=== PATIENT | male | born 1975 | race Caucasian/White ===

== ENCOUNTER 2016-11-21 13:55 | Emergency (ER) | payer BC | END 2016-11-21 16:05 | disposition left against medical advice (07) | LOC: UCEAST 13:55 | DX: Z11.3 Encounter for screening for infections with a predominantly sexual mode of transmission (principal); Z53.21 Procedure and treatment not carried out due to patient leaving prior to being seen by health care provider ==

== ENCOUNTER 2018-07-02 07:53 | Emergency (ER) | payer BC ==
[2018-07-02] MEDS ORDERED: NS 0.9% 1000 ML* 1,000 ML IV ONE (08:13)
[2018-07-02] MEDS ORDERED: Ondansetron INJ* 2 MG/ML VIAL IV ONE (08:13)
[2018-07-02] MEDS ORDERED: Ketorolac INJ* 30 MG/ML 1 ML VIAL IV ONE (08:13)
--- NOTE | 2018-07-02 08:17 | ED ---
Abdominal Pain/Male - HPI Summary HPI Summary: Pt is a 42 y/o male who presents to the ED c/o abdominal pain. He states hes had the pain for several weeks, and the pain begins every morning. The pain is located in his RLQ, is 8/10 in severity, and has had N/V from the pain. Pt denies any fever or chills. He was at [place] earlier this week for his AFib, and denies getting any imaging studies done for his abdominal pain. Pt also denies going to a unleavened dough mixer for his AFib. He denies any PSHx of abdominal surgery. He denies eating food today, or taking any medications for his pain. Pt smokes 2-3 cigarettes per day, uses marijuana occasionally, and drinks alcohol. Past hx of alcohol abuse. - History of Current Complaint Chief Complaint: EDAbdPain Stated Complaint: VOMITING/ABD PAIN Time Seen by Provider: 07/02/18 08:05 Hx Obtained From: Patient Onset/Duration: Gradual Onset, Lasting Weeks - 2-3, Worse Since Timing: Constant Severity Currently: Severe Pain Intensity: 8 Pain Scale Used: 0-10 Numeric Location: Diffuse, Discrete At: RLQ - Worst Radiates: No Aggravating Factor(s): Nothing Alleviating Factor(s): Nothing Associated Signs And Symptoms: Positive: Nausea, Vomiting. Negative: Fever - Allergies/Home Medications Allergies/Adverse Reactions: Allergies Allergy/AdvReac Type Severity Reaction Status Date / Time MS Iodine [Iodine] Allergy Rash Verified 11/13/15 20:16 PMH/Surg Hx/FS Hx/Imm Hx Endocrine/Hematology History: Denies: Hx Diabetes, Hx Anemia Cardiovascular History: Reports: Hx Angina - VTACH episode 2011, Hx Atrial Fibrillation, Hx Hypercholesterolemia - HLD, Hx Hypertension, Other Cardiovascular Problems/Disorders - pt has a loop recorder for vtach placed in 5 years ago Denies: Hx Congestive Heart Failure, Hx Coronary Artery Disease, Hx Myocardial Infarction, Hx Valvular Heart Disease Respiratory History: Reports: Hx Asthma, Hx Pneumonia, Hx Sleep Apnea Denies: Hx Chronic Obstructive Pulmonary Disease (COPD) GI History: Reports: Hx Gastroesophageal Reflux Disease Denies: Hx Jaundice Neurological History: Reports: Hx Headaches Psychiatric History: Reports: Hx Anxiety, Hx Depression, Hx Panic Disorder, Hx of Violent Episodes Against Others, Hx Substance Abuse - EtOH - Surgical History Surgery Procedure, Year, and Place: INTERNAL EVENT LOOP RECORDED [facility] 07/2012 Hx Anesthesia Reactions: No Infectious Disease History: No Infectious Disease History: Denies: Traveled Outside the [place] in Last 30 Days - Family History Known Family History: Positive: Cardiac Disease - [place] - sister - Social History Alcohol Use: Weekly Alcohol Amount: 2-4 BEERS/DAY Hx Substance Use: Yes Substance Use Type: Reports: Marijuana - Occasional Hx Tobacco Use: Yes Smoking Status (MU): Light Every Day Tobacco Smoker Amount Used/How Often: 2-3 cig/day Have You Smoked in the Last Year: Yes Review of Systems Negative: Fever, Chills Positive: Abdominal Pain, Vomiting, Nausea All Other Systems Reviewed And Are Negative: Yes Physical Exam - Summary Physical Exam Summary: GENERAL: Patient is a well-developed and nourished M who is lying uncomfortable in the stretcher. Patient is not in any acute respiratory distress. HEAD AND FACE: Normocephalic EYES: PERRLA, EOMI x 2. EARS: Hearing grossly intact. MOUTH: Oropharynx within normal limits. NECK: Supple, trachea is midline, no adenopathy, no JVD, no carotid bruit. CHEST: Symmetric, no tenderness at palpation LUNGS: Clear to auscultation bilaterally. No wheezing or crackles. CVS: Regular rate and rhythm, S1 and S2 present, no murmurs or gallops appreciated. ABDOMEN: Soft. Bowel sounds are normal. No abdominal abnormal pulsations. Diffuse tenderness. EXTREMITIES: Full ROM in all major joints, no edema, no cyanosis or clubbing. NEURO: Alert and oriented x 3. No acute neurological deficits. Speech is normal and follows commands. SKIN: Dry and warm Triage Information Reviewed: Yes Vital Signs On Initial Exam: Initial Vitals Temp Pulse Resp BP Pulse Ox 98.4 F 72 24 110/89 99 07/02/18 07:57 07/02/18 07:57 07/02/18 07:57 07/02/18 07:57 07/02/18 07:57 Vital Signs Reviewed: Yes Diagnostics - Vital Signs Vital Signs Temp Pulse Resp BP Pulse Ox 07/02/18 07:57 98.4 F 72 24 110/89 99 - Laboratory Result Diagrams: 07/02/18 08:37 07/02/18 08:37 Lab Statement: Any lab studies that have been ordered have been reviewed, and results considered in the medical decision making process. - CT CT A/P CT Interpretation: No Acute Changes - No bowel obstruction. No abnormal masses or fluid collections are noted. Normal appendix. ED physician reviewed radiology report. CT Interpretation Completed By: Radiologist Re-Evaluation - Re-Evaluation First Eval Re-Evaluation Time: 11:14 Change: Unchanged Comment: Informed pt of imaging results. Abdominal Pain Fem Course/Dx - Course Course Of Treatment: Pt is a 42 y/o male who presents to the ED c/o abdominal pain. He states hes had the pain for several weeks, and the pain begins every morning. The pain is located in his RLQ, is 8/10 in severity, and has had N/V from the pain. Pt denies any fever or chills. He was at [place] earlier this week for his AFib, and denies getting any imaging studies done for his abdominal pain. A physical exam revealed diffuse abdominal tenderness. A CT A/P revealed No bowel obstruction. No abnormal masses or fluid collections are noted. Normal appendix. Final dx is abdominal pain. Pt is discharged and is agreeable with this plan. - Diagnoses Provider Diagnoses: Abdominal pain Discharge - Sign-Out/Discharge Documenting (check all that apply): Patient Departure - Discharge - Discharge Plan Condition: Stable Disposition: HOME Prescriptions: Ondansetron [Zofran Odt] 4 mg PO TID #12 tab.rapdis traMADol TAB* [Ultram*] 50 mg PO Q8H PRN #12 tab MDD 3 PRN Reason: Pain Patient Education Materials: Abdominal Pain (ED) Forms: *Work Release Referrals: Bernabe Clarke MD [Medical Doctor] - (1-3 days) Additional Instructions: RETURN TO THE EMERGENCY DEPARTMENT FOR CHANGING OR WORSENING SYMPTOMS. - Billing Disposition and Condition Condition: STABLE Disposition: Home - Attestation Statements Document Initiated by Scribe: Yes Documenting Scribe: Odalys Wright Provider For Whom Wale is Documenting (Include Credential): Cheri Bermudez MD Scribe Attestation: Odalys Camp scribed for Cheri Bermudez MD on 07/03/18 at 0712. Scribe Documentation Reviewed: Yes Provider Attestation: The documentation as recorded by the Odalys ngo accurately reflects the service I personally performed and the decisions made by Cheri leyva MD
[2018-07-02 08:46] LABS: ABS Basophils 0.1 10^3/ul (0-0.2); ABS Eosinophils 0.1 10^3/ul (0-0.6); ABS Monocytes 0.5 10^3/ul (0-0.8); ABS Nucleated RBC 0 10^3/ul; Eosinophil % 1.2 % (0-6); Hematocrit 45 % (42-52); Hemoglobin 15.5 g/dl (14.0-18.0); Lymphocyte % 23.2 % (25-47); Mean Corpuscular HGB Conc 35 g/dl (31-36); Mean Corpuscular Hemoglobin 32 pg (27-31); Mean Corpuscular Volume 91 fL (80-94); Mean Platelet Volume 7.6 um3 (7.4-10.4); Nucleated Red Blood Cells % 0; Platelet Count 274 10^3/ul (150-450); Red Blood Count 4.91 10^6/ul (4.00-5.40); Red Cell Distribution Width 13 % (10.5-15); White Blood Count 8.7 10^3/ul (3.5-10.8)
[2018-07-02] MEDS ORDERED: Morphine VIAL* 10 MG/ML 1 ML VIAL IV ONE (09:08)
[2018-07-02 09:49] LABS: Urine Appearance Cloudy; Urine Blood 1+ (Negative); Urine Color Yellow; Urine Ketones Negative (Negative); Urine Protein Negative (Negative); Urine Red Blood Cell Trace(0-2/hpf) (Absent); Urine Specific Gravity 1.027 (1.010-1.030); Urine Urobilinogen Negative (Negative); Urine White Blood Cell Trace(0-5/hpf) (Absent)
--- NOTE | 2018-07-02 10:28 | RAD ---
Indication: Diffuse abdominal pain. CT of the abdomen and pelvis was performed without oral or IV contrast administration. No prior study is available for comparison. The lung bases demonstrate no pleural fluid, pneumonia or pneumothorax. Heart is of normal size without evidence of pericardial effusion. The liver is normal in size. No focal lesions or intrahepatic duct dilatation is noted. The gallbladder demonstrates no calcified gallstones. No pericholecystic fluid or wall thickening is noted. The spleen is normal in size. The pancreas demonstrates no mass or pancreatic duct dilatation. The common duct is not dilated. The gallbladder demonstrates no calcified gallstones, pericholecystic fluid or wall thickening. No adrenal masses are noted. The kidneys demonstrate no hydronephrosis. No retroperitoneal lymphadenopathy is noted. No dilated loops of bowel are noted. CT of the pelvis demonstrates no dilated loops of bowel. The appendix is visualized. It appears to be within normal limits. No evidence of bowel obstruction is noted. No hernias are noted. The urinary bladder is unremarkable. The visualized bony structures are grossly unremarkable. IMPRESSION: No bowel obstruction. No abnormal masses or fluid collections are noted. Normal appendix.
[2018-07-02 11:56] VITALS: BP 133/90
== END 2018-07-02 11:55 | disposition home or self-care (01) ==
LOC: ED 07:53
DX: R10.31 Right lower quadrant pain (principal); K21.9 Gastro-esophageal reflux disease without esophagitis; I48.91 Unspecified atrial fibrillation; E78.00 Pure hypercholesterolemia, unspecified; E78.5 Hyperlipidemia, unspecified; I10 Essential (primary) hypertension; F17.210 Nicotine dependence, cigarettes, uncomplicated
CPT/HCPCS: 36415; 74176; 80053; 81003; 81015; 83605; 83690; 83735; 85025; 85730; 86140; 87040; 87086; 96361; 96374; 96375; 99283; J1885; J2270; J2405

== ENCOUNTER 2018-07-06 11:27 | Emergency (ER) | payer BC ==
[2018-07-06] MEDS ORDERED: Pantoprazole IV* 40 MG IV ONE (11:41)
[2018-07-06] MEDS ORDERED: NS 0.9% 1000 ML* 2,000 ML IV ONE (11:41)
--- NOTE | 2018-07-06 11:48 | ED ---
Respiratory - HPI Summary HPI Summary: This patient is a 42 year old M presenting to [facility] with a chief complaint of coughing up bright red blood. Pt states he was at work walking with a coworker when he coughed up bright red blood. He has had a few occasions since this first episode, but he only coughs occasionally. The patient rates the pain 7/10 in severity. Patient reports epigastria pain and SOB. Patient denies coughing, blood in his stool, and vomiting. Pt took two ibuprofen for a MCKINLEY this am. 5 days ago the patient was seen in the ED for ABD pain, n/v, and dry heaving. Pt has recently been seen for and afib. He is not on blood thinners. Pt drinks daily and had two beers last night, he also smokes marijuana daily. - History of Current Complaint Chief Complaint: EDShortnessOfBreath Stated Complaint: COUGHING UP BLOOD Time Seen by Provider: 07/06/18 11:35 Hx Obtained From: Patient Onset/Duration: Lasting Hours, Still Present Timing: Constant Initial Severity: Moderate Current Severity: Moderate Pain Intensity: 7 Character: Cough (Productive) Sputum Amount: Small Sputum Color: Red (Blood) Associated Signs and Symptoms: Negative - fever - Allergy/Home Medications Allergies/Adverse Reactions: Allergies Allergy/AdvReac Type Severity Reaction Status Date / Time iodine Allergy Severe Rash Verified 07/06/18 12:56 Home Medications: Home Medications Ondansetron [Zofran Odt] 4 mg PO TID PRN 07/06/18 [History Confirmed 07/06/18] Sertraline* [Zoloft*] 50 mg PO DAILY 07/06/18 [History Confirmed 07/06/18] clonazePAM TAB(*) [Klonopin TAB(*)] 0.5 mg PO BID PRN 07/06/18 [History Confirmed 07/06/18] PMH/Surg Hx/FS Hx/Imm Hx Endocrine/Hematology History: Denies: Hx Diabetes, Hx Anemia Cardiovascular History: Reports: Hx Angina - VTACH episode 2011, Hx Atrial Fibrillation, Hx Hypercholesterolemia - HLD, Hx Hypertension, Other Cardiovascular Problems/Disorders - pt has a loop recorder for vtach placed in 5 years ago Denies: Hx Congestive Heart Failure, Hx Coronary Artery Disease, Hx Myocardial Infarction, Hx Valvular Heart Disease Respiratory History: Reports: Hx Asthma, Hx Pneumonia, Hx Sleep Apnea Denies: Hx Chronic Obstructive Pulmonary Disease (COPD) GI History: Reports: Hx Gastroesophageal Reflux Disease Denies: Hx Jaundice Neurological History: Reports: Hx Headaches Psychiatric History: Reports: Hx Anxiety, Hx Depression, Hx Panic Disorder, Hx of Violent Episodes Against Others, Hx Substance Abuse - EtOH - Surgical History Surgery Procedure, Year, and Place: INTERNAL EVENT LOOP RECORDED [facility] 07/2012 Hx Anesthesia Reactions: No Infectious Disease History: No Infectious Disease History: Denies: Traveled Outside the [place] in Last 30 Days - Family History Known Family History: Positive: Cardiac Disease - [place] - sister - Social History Alcohol Use: Weekly Alcohol Amount: 2-4 BEERS/DAY Hx Substance Use: Yes Substance Use Type: Reports: Marijuana - Occasional Hx Tobacco Use: Yes Smoking Status (MU): Light Every Day Tobacco Smoker Amount Used/How Often: 2-3 cig/day Have You Smoked in the Last Year: Yes Review of Systems Negative: Fever Positive: Shortness Of Breath, Cough Positive: Abdominal Pain. Negative: Vomiting All Other Systems Reviewed And Are Negative: Yes Physical Exam - Summary Physical Exam Summary: VITAL SIGNS: Reviewed. GENERAL: Patient is a well-developed and nourished male who is lying comfortable in the stretcher. Patient is not in any acute respiratory distress. HEAD AND FACE: No signs of trauma. No ecchymosis, hematomas or skull depressions. No sinus tenderness. EYES: PERRLA, EOMI x 2, No injected conjunctiva, no nystagmus. EARS: Hearing grossly intact. Ear canals and tympanic membranes are within normal limits. MOUTH: Oropharynx within normal limits. NECK: Supple, trachea is midline, no adenopathy, no JVD, no carotid bruit, no c- spine tenderness, neck with full ROM. CHEST: Symmetric, no tenderness at palpation LUNGS: Clear to auscultation bilaterally. No wheezing or crackles. CVS: Regular rate and rhythm, S1 and S2 present, no murmurs or gallops appreciated. ABDOMEN: Soft, TTP in epigastria. No signs of distention. No rebound no guarding , and no masses palpated. Bowel sounds are normal. EXTREMITIES: FROM in all major joints, no edema, no cyanosis or clubbing. NEURO: Alert and oriented x 3. No acute neurological deficits. Speech is normal and follows commands. SKIN: Dry and warm Triage Information Reviewed: Yes Vital Signs On Initial Exam: Initial Vitals Temp Pulse Resp BP Pulse Ox 97.5 F 89 16 151/104 99 07/06/18 11:32 07/06/18 11:32 07/06/18 11:32 07/06/18 11:32 07/06/18 11:32 Vital Signs Reviewed: Yes Diagnostics - Vital Signs Vital Signs Temp Pulse Resp BP Pulse Ox 07/06/18 11:32 97.5 F 89 16 151/104 99 - Laboratory Result Diagrams: 07/06/18 12:06 07/06/18 12:06 Lab Statement: Any lab studies that have been ordered have been reviewed, and results considered in the medical decision making process. - Radiology CXR Radiology Interpretation Completed By: Radiologist - No active cardiopulmonary disease is noted. ED physician has reviewed this radiology report. - EKG 1153 Cardiac Rate: NL EKG Rhythm: Sinus Rhythm - at 75 BPM EKG Interpretation: normal axis and no ST elevations Disposition - Course Assessment/Plan: This patient is a 42-year-old male who presents to the emergency department with the chief complaint of epigastric pain, shortness of breath and coughing up blood. He reports that he cough a couple times this morning and then he he noticed that he had blood every time he coughed. Patient reports that he is not taking any blood thinners, has not taken aspirin but he took an ibuprofen this morning for headache. He also reports that one month ago the patient had abdominal pain as well as epigastric pain associated with nausea and vomiting. Patient reports that he drinks about 3 times a week, he had 2 beers last night, he smokes and he uses marijuana. Blood test results without any significant abnormality except for an increased creatinine level of 1.31. Chest x-ray shows no acute pathology. In the ED course the patient was given IV fluids and he was given Protonix. Since that the patient has been stable. H&H is stable and he is hemodynamically stable. He has not had any other episodes of hematemesis. Therefore the patient will be discharged home with follow-up with primary care physician. The patient will be given a prescription for Zofran and omeprazole. I discussed all the findings and test results with the patient. Patient was instructed to return to the emergency room immediately if any of the symptoms return or worsens. Plan of care was discussed with the patient and understands and agrees. All questions were answered at patient satisfaction. There were no further complaints or concerns. Lung exam before discharge: CTA B/L. Good air exchange. No wheezing or crackles heard. CVS: S1 and S2 present. No murmurs appreciated. Patient is alert and oriented x 3. Patient is hemodynamically stable. Patient will be discharged home with follow up PCP in the next 2-3 days - Diagnoses Provider Diagnoses: Hemoptysis Discharge - Sign-Out/Discharge Documenting (check all that apply): Patient Departure - Discharge Plan Condition: Stable Disposition: HOME Prescriptions: Ondansetron ODT TAB* [Zofran 4 MG Odt TAB*] 4 mg PO Q6H PRN #10 tab.odt PRN Reason: Vomiting Patient Education Materials: Hemoptysis (ED) Referrals: Care [facility] [Outside] - 2 Days Additional Instructions: RETURN TO THE EMERGENCY DEPARTMENT FOR CHANGING OR WORSENING SYMPTOMS. FOLLOW UP WITH PCP IN 1-2 DAYS. - Billing Disposition and Condition Condition: STABLE Disposition: Home - Attestation Statements Document Initiated by Judyibe: Yes Documenting Scribe: Emeterio Monroy Provider For Whom Magaliee is Documenting (Include Credential): Sherman Delgado MD Scribe Attestation: Emeterio Camp , scribed for Sherman Delgado MD on 07/07/18 at 2059. Scribe Documentation Reviewed: Yes Provider Attestation: The documentation as recorded by the Emeterio ngo accurately reflects the service I personally performed and the decisions made by me, Sherman Delgado MD
[2018-07-06 12:42] LABS: INR 0.95 (0.77-1.02)
--- OUTSIDE RECORDS SUMMARY | 2018-07-06 12:52 | XMS REPORT ---
:1975 External Reference #:[id number] Author Organization [facility] Address [address] [place] [address] [place] [address] Phone [phone] Care Team Providers Name Role Phone Patrice Baca DO Care Team Information Window Tinter Unavailable Isael Munoz MD Primary Care Physician Unavailable Payers Type Date Identification Numbers Payment Provider Subscriber Commercial Expires: Policy Number: [id number] [email or web address] Odilon Ness 2018 Group Number: [id number] [address] PayID: [place] [address] [facility] Part [facility] Policy Number: [id number] [facility] Odilon Ness PayID: [id number] [address] [address] [place] [address] Problems Description No Information Family History Date Family Member(s) Problem(s) Comments Father Alive And Well Father uncles with NE's Mother due to Unknown () - history of Causes "Bipolar Schizophrenia". left family when patient was 4. Patient raised t he possibility that his mom did not take care of her health during her . 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 Allergies, Adverse Reactions, Alerts Date Description Reaction Status Severity Comments 07/02/2018 Iodine active 08/17/2012 NKDA inactive Medications Medication Date Status Form Strength Qnty SIG Indications Ordering Provider Sertraline HCL 07/03/ Active Tablets 50mg 30tabs 1 tab 2017 every day Kayla, (do not DO start this until after you finish the tramadol) Omeprazole / Active Capsules 20mg 90caps take one Doreen 0000 DR by mouth Jose Rner, daily DO Tramadol HCL / Active Tablets 50mg 1 tablets Unknown 0000 by mouth every 6 hours as needed pain Ondansetron / Active Tablets 4mg dissolve Unknown 0000 Dispers one tablet orally every 8 hours as needed for nausea. Potassium 08/17/ Hx Tablets ER 10Meq 180tab 2 po qd Shantanu Chloride ER 2011 Ana Cristina2017 MMane Lipitor / Hx Tablets 20mg 90tabs 1 po hs Shantanu 0000 - hold as of 08.17. Ana Cristina2017 Sharmila Librium / Hx Capsules as 10caps Unknown 0000 - Directed 2011 Thiamine HCL / Hx Tablets 100mg 15tabs take 1 Unknown 0000 - tablet 2017 Clonazepam Odt / Hx Tablets 0.5mg 30tabs qid prn Unknown 0000 - Dispers 2017 Aspir-81 / Hx Tablets DR 81mg 100tab 1 po qd Unknown 0000 - s 2017 Fish Oil / Hx Capsules 1000mg 60caps po bid Unknown Burp-Less 0000 - 2017 Multivitamins 00/ Hx Capsules 30caps 1 capsule Unknown 0000 - yoshi;y 2017 Vital Signs Date Vital Result Comment 07/04/2018 Weight 201.00 lb Heart Rate 74 /min BP Systolic 133 mmHg Lue average long BP Diastolic 93 mmHg Lue average long BP Systolic Sitting 135 mmHg Rue avarage long BP Diastolic Sitting 91 mmHg Rue avarage long Respiratory Rate 18 /min Body Temperature 96.5 F Pain Level 6 O2 % BldC Oximetry 100 % 07/02/2018 Height 73 inches 6'1" Weight 209.00 lb Heart Rate 50 /min BP Systolic 138 mmHg average long, Lue BP Diastolic 92 mmHg average long, Lue Respiratory Rate 18 /min Body Temperature 98.3 F Pain Level 8 RLQ O2 % BldC Oximetry 98 % BMI (Body Mass Index) 27.6 kg/m2 08/17/2012 Height 73 inches 6'1" Weight 205.00 lb Heart Rate 60 /min BP Systolic Sitting 116 mmHg BP Diastolic Sitting 82 mmHg Respiratory Rate 20 /min BMI (Body Mass Index) 27.0 kg/m2 Results Test Date Test Result H/L Range Note Basic Metabolic Panel 09/17/2012 Sodium 137 mmol/L 133-145 Potassium 4.1 mmol/L 3.5-5.0 Chloride 102 mmol/L 101-111 Co2 Carbon Dioxide 27.0 mmol/L 22-32 Anion Gap 8.0 mmol/L 2-11 Glucose 95 mg/dL 70-100 Blood Urea Nitrogen 16 mg/dL 6-24 Creatinine 1.10 mg/dL 0.50-1.40 BUN/Creatinine Ratio 14.5 8-20 Calcium 9.6 mg/dL 8.1-9.9 Egfr Non- 76.6 >60 Egfr 98.5 >60 1 Laboratory test finding 09/17/2012 Magnesium 2.2 mg/dL 1.7-2.6 CBC Auto Diff 09/17/2012 White Blood Count 6.3 10^3/uL 4.8-10.8 Red Blood Count 4.58 10^6/uL 4.0-5.4 Hemoglobin 14.4 g/dL 14.0-18.0 Hematocrit 43 % 42-52 Mean Corpuscular Volume 93 fL 80-94 Mean Corpuscular Hemoglobin 32 pg High 27-31 Mean Corpuscular HGB Conc 34 g/dL 31-36 Red Cell Distribution Width 12 % 10.5-15 Platelet Count 276 10^3/uL 150-450 Mean Platelet Volume 9 um3 7.4-10.4 Abs Neutrophils 3.1 10^3/uL 1.5-7.7 Abs Lymphocytes 2.5 10^3/uL 1.0-4.8 Abs Monocytes 0.4 10^3/uL 0-0.8 Abs Eosinophils 0.2 10^3/uL 0-0.6 Abs Basophils 0.1 10^3/uL 0-0.2 Abs Nucleated RBC 0.01 10^3/uL Granulocyte % 49.0 % 38-83 Lymphocyte % 39.4 % 25-47 Monocyte % 7.0 % 1-9 Eosinophil % 3.7 % 0-6 Basophil % 0.9 % 0-2 Nucleated Red Blood Cells % 0.1 Laboratory test finding 09/17/2012 Inr 0.81 Low 0.82-1.17 2 Catecholamine 24HR Urine 09/13/2012 Urine Collection 24 h Fract Duration Urine Total Volume 2000 mL Urine Norepinephrine 60 mcg/24h 15-80 Urine Epinephrine 5.6 mcg/24h 0.0-20.0 Urine Dopamine 216 mcg/24h 65-400 3 Basic Metabolic Panel 08/22/2012 Sodium 143 mmol/L 133-145 Potassium 4.3 mmol/L 3.5-5.0 Chloride 104 mmol/L 101-111 Co2 Carbon Dioxide 31.0 mmol/L 22-32 Anion Gap 8.0 mmol/L 2-11 Glucose 80 mg/dL 70-100 Blood Urea Nitrogen 17 mg/dL 6-24 Creatinine 1.10 mg/dL 0.50-1.40 BUN/Creatinine Ratio 15.5 8-20 Calcium 10.5 mg/dL High 8.1-9.9 Egfr Non- 76.6 >60 Egfr 98.5 >60 4 Laboratory test finding 08/22/2012 Magnesium 2.4 mg/dL 1.7-2.6 5 1 Because ethnic data is not always readily available, this report includes an eGFR for both -Americans and non- Americans. The National Kidney Disease Education Program (NKDEP) does not endorse the use of the MDRD equation for patients that are not between the ages of 18 and 70, are , have extremes of body size, muscle mass, or nutritional status, or are non- or non-. According to the National Kidney Foundation, irrespective of diagnosis, the stage of the disease is based on the level of kidney function: Stage Description GFR(mL/min/1.73 m(2)) 1 Kidney damage with normal or decreased GFR 90 2 Kidney damage with mild decrease in GFR 60-89 3 Moderate decrease in GFR 30-59 4 Severe decrease in GFR 15-29 5 Kidney failure <15 (or dialysis) 2 The INR(International Normalized Ratio) was adopted by the World Health Organization (WHO) in 1983 as a standardized system of reporting PT (Prothrombin Time). The Centers for Disease Control (CDC) states that reporting of PT results in INR only is the preferred method. Recommended INR for Patients on Oral Anticoagulants Prophylaxis 2.0 - 3.0 Treatment of thrombosis 2.0 - 3.0 Prevention of embolism 2.0 - 3.0 Prevention of embolism from prosthetic heart valves 2.5 - 3.5 3 Test Performed by: [address] [address] Ambulance Attendant: Calin Sr III, M.D. R 4 Because ethnic data is not always readily available, this report includes an eGFR for both -Americans and non- Americans. The National Kidney Disease Education Program (NKDEP) does not endorse the use of the MDRD equation for patients that are not between the ages of 18 and 70, are , have extremes of body size, muscle mass, or nutritional status, or are non- or non-. According to the National Kidney Foundation, irrespective of diagnosis, the stage of the disease is based on the level of kidney function: Stage Description GFR(mL/min/1.73 m(2)) 1 Kidney damage with normal or decreased GFR 90 2 Kidney damage with mild decrease in GFR 60-89 3 Moderate decrease in GFR 30-59 4 Severe decrease in GFR 15-29 5 Kidney failure <15 (or dialysis) 5 CC: LESLIE HUNTLEY AND DR.ETHAN BACA PER ROBY @ 'S OFFICE Procedures Date CPT Code Description Status 12/04/2013 88700 Treadmill Interp/Report Only Completed 12/04/2013 08939 Stress Test Supervsn W/Out I/R Completed 12/04/2013 41683 Myocardial Perfusion Imaging Tomographic (Spect) Completed Multiple Studies 12/03/2013 42986 EKG, Interpretation Only Completed 08/20/2013 89554 Polysomnography Sleep Staging 4+ Parameters W/Cpap Completed 08/06/2013 25810 Polysomnography Sleep Staging 4+ Parameters W/Cpap Completed 08/22/2012 44592 Mobile Cardiovascular Telemetry Over 24 HR Up To 30 Completed Days 08/17/2012 78711 EKG Tracing & Interpretation Completed Encounters Type Date Location Provider CPT E/M Dx Office Visit 08/01/2013 3:39p Sleep Disorder Cam Rowley M.D. 94739 786.[address] [place] [phone] Office Visit 08/17/2012 2:40p [facility] Shantanu De La Paz M.D. 52294 785.0 780.2 Plan of Care Future Appointment(s):07/20/2018 1:30 pm - Demetrius Aviles MD at [facility]08/06/2018 2:30 pm - Doreen Garza DO at [facility]11/22/2018 1:00 pm - Isael Munoz M.D.,FACP at [facility] Internal Medicine - [address]07/04/2018 - Doreen Garza, DOR00.2 PalpitationsNew Orders: EKGReferral:Brook Spivey MD, Cardiovsclr VcesltgH59.9 Major depressive disorder, single episode, lpoqgidyfydV97.31 Right lower quadrant painF41.0 Panic disorder [episodic paroxysmal anxiety]
--- OUTSIDE RECORDS SUMMARY | 2018-07-06 12:52 | XMS REPORT ---
:1975 External Reference #:[id number] Author Organization [facility] Address [address] [place] [address] [address] [place] [address] Phone [phone] Care Team Providers Name Role Phone Patrice Baca DO Care Team Information Counter Server Unavailable Bernabe Clarke MD Primary Care Physician Unavailable Payers Type Date Identification Numbers Payment Provider Subscriber Commercial Expires: Policy Number: [id number] [employer] Odilon Ness 2018 Group Number: [id number] 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 Allergies, Adverse Reactions, Alerts Date Description Reaction Status Severity Comments 07/02/2018 Iodine active 08/17/2012 NKDA inactive Medications Medication Date Status Form Strength Qnty SIG Indications Ordering Provider Omeprazole 00/ Active Capsules 20mg 90caps pt get Unknown 0000 DR OTC, 1 po qd Tramadol HCL / Active Tablets 50mg 1 tablets Unknown 0000 by mouth every 6 hours as needed pain Ondansetron / Active Tablets 4mg dissolve Unknown 0000 Dispers one tablet orally every 8 hours as needed for nausea. Potassium 08/17/ Hx Tablets ER 10Meq 180tab 2 po qd Shantanu Chloride ER 2011 - shaun2017 MMane Lipitor / Hx Tablets 20mg 90tabs 1 po hs Shantanu 0000 - hold as of 08.17. Mariela2017 Sharmila Librium / Hx Capsules as 10caps [...] bid Unknown Burp-Less 0000 - 2017 Multivitamins / Hx Capsules 30caps 1 capsule Unknown 0000 - yoshi;y 2017 Vital Signs Date Vital Result Comment 07/02/2018 Height 73 inches 6'1" Weight 209.00 [...] 2.5 - 3.5 3 Test Performed by: [address] [address] Cloth Beamer: Calin Sr III, M.D. R 4 Because [...] dialysis) 5 CC: LESLIE HUNTLEY AND DR.ETHAN HELLEN [place] @ 'S OFFICE Procedures Date CPT Code Description Status 12/04/2013 95406 Treadmill Interp/Report Only Completed 12/04/2013 77555 Stress Test Supervsn W/Out I/R Completed 12/04/2013 70518 Myocardial Perfusion Imaging Tomographic (Spect) Completed Multiple Studies 12/03/2013 88852 EKG, Interpretation Only Completed 08/20/2013 65486 Polysomnography Sleep Staging 4+ Parameters W/Cpap Completed 08/06/2013 67551 Polysomnography Sleep Staging 4+ Parameters W/Cpap Completed 08/22/2012 30375 Mobile Cardiovascular Telemetry Over 24 HR Up To 30 Completed Days 08/17/2012 19548 EKG Tracing & Interpretation Completed Encounters Type Date Location Provider CPT E/M Dx Office Visit 08/01/2013 3:39p Sleep Disorder Cam Rowley M.D. 44129 786.09 Center 780.79 780.59 Office Visit 08/17/2012 2:40p [facility] Shantanu De La Paz M.D. 35885 785.0 780.2 Plan of Care Future Appointment(s):08/02/2018 3:00 pm - Justus Lawrence NP at [facility] Internal Medicine - [address]24/10/2018 - LUCY Pagan10.31 Right lower quadrant painNew Xrays:US TesticularFollow up:stop marijuana
[2018-07-06 12:55] LABS: ABS Basophils 0.1 10^3/ul (0-0.2); ABS Eosinophils 0.1 10^3/ul (0-0.6); ABS Monocytes 0.5 10^3/ul (0-0.8); ABS Nucleated RBC 0 10^3/ul; Eosinophil % 0.8 % (0-6); Hematocrit 45 % (42-52); Hemoglobin 15.1 g/dl (14.0-18.0); Lymphocyte % 30.4 % (25-47); Mean Corpuscular HGB Conc 34 g/dl (31-36); Mean Corpuscular Hemoglobin 31 pg (27-31); Mean Corpuscular Volume 92 fL (80-94); Mean Platelet Volume 7.9 um3 (7.4-10.4); Nucleated Red Blood Cells % 0.1; Platelet Count 299 10^3/ul (150-450); Red Blood Count 4.85 10^6/ul (4.00-5.40); Red Cell Distribution Width 12 % (10.5-15); White Blood Count 6.7 10^3/ul (3.5-10.8)
--- NOTE | 2018-07-06 12:58 | RAD ---
Indication: Hematemesis. 2 views of the chest including dual energy PA views demonstrate no mediastinal shift. Heart is of normal size and configuration. Lung mcguire are clear. IMPRESSION: No active cardiopulmonary disease is noted.
[2018-07-06 13:01] LABS: EGFR Non-African American 60.6 (>60)
[2018-07-06 14:13] LABS: Urine Appearance Cloudy; Urine Blood Negative (Negative); Urine Color Yellow; Urine Ketones Trace (Negative); Urine Protein Negative (Negative); Urine Specific Gravity 1.029 (1.010-1.030); Urine Urobilinogen Negative (Negative)
[2018-07-06 14:18] VITALS: BP 130/88
== END 2018-07-06 14:17 | disposition home or self-care (01) ==
LOC: ED 11:27
DX: R04.2 Hemoptysis (principal); J45.909 Unspecified asthma, uncomplicated; K21.9 Gastro-esophageal reflux disease without esophagitis; I48.91 Unspecified atrial fibrillation; Z79.01 Long term (current) use of anticoagulants; E78.00 Pure hypercholesterolemia, unspecified; E78.5 Hyperlipidemia, unspecified; I10 Essential (primary) hypertension; F17.210 Nicotine dependence, cigarettes, uncomplicated
CPT/HCPCS: 36415; 71046; 80053; 81003; 83605; 83690; 83735; 83880; 84484; 85025; 85610; 85730; 86140; 86850; 86900; 86901; 93005; 96361; 96374; 99282

== ENCOUNTER 2018-10-01 09:48 | Emergency (ER) | payer BC ==
[2018-10-01] MEDS ORDERED: NS 0.9% 1000 ML* 1,000 ML IV ONE (10:04)
--- NOTE | 2018-10-01 10:12 | ED ---
Shortness of Breath - HPI Summary HPI Summary: This patient is a 42 year old M presenting to [facility] accompanied by a woman with a chief complaint of SOB since yesterday. The patient rates the pain 7/10 in severity. Symptoms aggravated by exercise or movement. Patient reports cough with black/brown phlegm, fever, chills, vomiting, CP, wheezing, and diaphoresis. The patient states that he cannot take deep breaths and cannot walk very far without needing to stop and breathe. He has not had this problem before. Pt states he has not had any recent long travel. He was at the [facility] earlier today, complicated heart and lung difficulties. PMHX Afib, SVT, asthma. No PMHx COPD. SHX tobacco use, light. - History of Current Complaint Chief Complaint: EDShortnessOfBreath Time Seen by Provider: 10/01/18 09:58 Hx Obtained From: Patient Onset/Duration: Sudden Onset, Lasting Days - 1 Timing: Constant Current Severity: Severe Dyspnea At: Rest Aggrevating Factors: Movement, Deep Breaths Associated Signs & Symptoms: Cough (Productive), Wheezing, Chest Pain w/Cough, Fever, Chills, Diaphoresis - Allergy/Home Medications Allergies/Adverse Reactions: Allergies Allergy/AdvReac Type Severity Reaction Status Date / Time iodine Allergy Severe Rash Verified 10/01/18 09:59 PMH/Surg Hx/FS Hx/Imm Hx Endocrine/Hematology History: Denies: Hx Diabetes, Hx Anemia Cardiovascular History: Reports: Hx Angina - VTACH episode 2011, Hx Atrial Fibrillation, Hx Hypercholesterolemia - HLD, Hx Hypertension, Other Cardiovascular Problems/Disorders - pt has a loop recorder for vtach placed in 5 years ago Denies: Hx Congestive Heart Failure, Hx Coronary Artery Disease, Hx Myocardial Infarction, Hx Valvular Heart Disease Respiratory History: Reports: Hx Asthma, Hx Pneumonia, Hx Sleep Apnea Denies: Hx Chronic Obstructive Pulmonary Disease (COPD) GI History: Reports: Hx Gastroesophageal Reflux Disease Denies: Hx Jaundice Neurological History: Reports: Hx Headaches Psychiatric History: Reports: Hx Anxiety, Hx Depression, Hx Panic Disorder, Hx of Violent Episodes Against Others, Hx Substance Abuse - EtOH - Surgical History Surgery Procedure, Year, and Place: INTERNAL EVENT LOOP RECORDED [facility] 07/2012 Hx Anesthesia Reactions: No Infectious Disease History: No Infectious Disease History: Denies: Traveled Outside the [place] in Last 30 Days - Family History Known Family History: Positive: Cardiac Disease - VT - sister - Social History Alcohol Use: Weekly Alcohol Amount: 2-4 BEERS/DAY Hx Substance Use: Yes Substance Use Type: Reports: Marijuana - Occasional Hx Tobacco Use: Yes Smoking Status (MU): Light Every Day Tobacco Smoker Amount Used/How Often: 2-3 cig/day Have You Smoked in the Last Year: Yes Review of Systems Positive: Fever, Chills, Skin Diaphoresis Positive: Chest Pain Positive: Shortness Of Breath, Cough Positive: Vomiting All Other Systems Reviewed And Are Negative: Yes Physical Exam - Summary Physical Exam Summary: VITAL SIGNS: Reviewed. GENERAL: Patient is a well-developed and nourished male who is lying comfortable in the stretcher. Patient is not in any acute respiratory distress. HEAD AND FACE: No signs of trauma. No ecchymosis, hematomas or skull depressions. No sinus tenderness. EYES: PERRLA, EOMI x 2, No injected conjunctiva, no nystagmus. EARS: Hearing grossly intact. Ear canals and tympanic membranes are within normal limits. MOUTH: Oropharynx within normal limits. NECK: Supple, trachea is midline, no adenopathy, no JVD, no carotid bruit, no c- spine tenderness, neck with full ROM. CHEST: Symmetric, no tenderness at palpation LUNGS: Clear to auscultation bilaterally. Decreased breath sounds in the lower lung. CVS: Regular rate and rhythm, S1 and S2 present, no murmurs or gallops appreciated. ABDOMEN: Soft, non-tender. No signs of distention. No rebound no guarding, and no masses palpated. Bowel sounds are normal. EXTREMITIES: FROM in all major joints, no edema, no cyanosis or clubbing. NEURO: Alert and oriented x 3. No acute neurological deficits. Speech is normal and follows commands. SKIN: Dry and warm Triage Information Reviewed: Yes Vital Signs On Initial Exam: Initial Vitals Temp Pulse Resp BP Pulse Ox 97.6 F 76 22 140/103 100 10/01/18 09:53 10/01/18 09:53 10/01/18 09:53 10/01/18 09:53 10/01/18 09:53 Vital Signs Reviewed: Yes Diagnostics - Vital Signs Vital Signs Temp Pulse Resp BP Pulse Ox 10/01/18 09:53 97.6 F 76 22 140/103 100 - Laboratory Result Diagrams: 10/01/18 10:23 10/01/18 10:23 Lab Statement: Any lab studies that have been ordered have been reviewed, and results considered in the medical decision making process. - Radiology CXR Radiology Interpretation Completed By: Radiologist Summary of Radiographic Findings: NO ACTIVE CARDIOPULMONARY DISEASE. ED physician has reviewed this report - EKG 10:10 Cardiac Rate: NL - 64 pm EKG Rhythm: Sinus Rhythm ST Segment: Normal EKG Comparison: No Significant Change - 07/06/18 Course/Dx - Course Assessment/Plan: This patient is a 42 year old M presenting to [facility] accompanied by a woman with a chief complaint of SOB since yesterday. The patient rates the pain 7/10 in severity. Symptoms aggravated by exercise or movement. Patient reports cough with black/brown phlegm, fever, chills, vomiting , CP, wheezing, and diaphoresis. The patient states that he cannot take deep breaths and cannot walk very far without needing to stop and breathe. He has not had this problem before. Pt states he has not had any recent long travel. He was at the [facility] clinic earlier today, complicated heart and lung difficulties. PMHX Afib, SVT, asthma. No PMHx COPD. SHX tobacco use, light. Blood work without any significant abnormality except for creatinine 1.29. Glucose is 105. D-dimer is less than 200. Therefore, hell no suspicion for pulmonary embolism. Troponin is 0.00. Chest x-ray impression: No active cardiopulmonary disease. EKG shows a normal sinus rhythm without any ST elevations. In the ED course the patient has remained stable. Head CT did give the patient Ativan since the patient seems to be very anxious. After these medications the symptoms had resolved. And since all his blood work is within normal limits and will be discharged the patient home with follow-up with primary care physician. I discussed all the findings and test results with the patient. Patient was instructed to return to the emergency room immediately if any of the symptoms return or worsens. Plan of care was discussed with the patient and understands and agrees. All questions were answered at patient satisfaction. There were no further complaints or concerns. Lung exam before discharge: CTA B/L. Good air exchange. No wheezing or crackles heard. CVS: S1 and S2 present. No murmurs appreciated. Patient is alert and oriented x 3. Patient is hemodynamically stable. Patient will be discharged home with follow up PCP in the next 2-3 days - Diagnoses Differential Diagnosis/HQI/PQRI: Positive: Asthma, Bronchitis, CHF, COPD Exacerbation, VT, Pneumonia Provider Diagnoses: Dyspnea, Anxiety Discharge - Sign-Out/Discharge Documenting (check all that apply): Patient Departure - discharge - Discharge Plan Condition: Stable Disposition: HOME Prescriptions: hydrOXYzine HCL TAB* [Atarax 25 MG TAB*] 25 mg PO TID PRN #20 tab PRN Reason: Anxiety Patient Education Materials: Dyspnea (ED), Anxiety (ED) Referrals: Isael Munoz MD [Primary Care Provider] - 2 Days Additional Instructions: RETURN TO THE EMERGENCY DEPARTMENT FOR NEW OR WORSENING SYMPTOMS - Billing Disposition and Condition Condition: STABLE Disposition: Home - Attestation Statements Document Initiated by Judyibmegan: Yes Documenting Scribe: Cayden Mccollum Provider For Whom Wale is Documenting (Include Credential): Sherman Delgado MD Scribe Attestation: Cayden Camp scribed for Sherman Delgado MD on 10/01/18 at 1816. Scribe Documentation Reviewed: Yes Provider Attestation: The documentation as recorded by the Cayden ngo accurately reflects the service I personally performed and the decisions made by , Sherman Delgado MD Status of Scribe Document: Viewed
--- OUTSIDE RECORDS SUMMARY | 2018-10-01 10:31 | XMS REPORT | Continuity of Care Document ---
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 krishna Odilon Ross [employer] Number: [id number] 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 Onset: 08/08/2018 Major depressive disorder, single episode, Demetrius Aviles MD Active unspecified Onset: 08/08/2018 Paroxysmal atrial fibrillation Demetrius Aviles MD Active Onset: 08/08/2018 Tobacco user Demetrius Aviles MD Active Onset: 08/08/2018 Panic disorder without agoraphobia Demetrius Aviles MD Active Family History Date Family Member(s) Problem(s) Comments Father Alive And Well Father uncles with CT's Mother due to Unknown () - history [...] Dependent Social History Type Date Description Comments Sex Unknown Marital Status 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 Allergies, Adverse Reactions, Alerts Date Description Reaction Status Severity Comments 07/02/2018 Iodine Active 08/17/2012 NKDA Inactive Medications Medication Date Status Form Strength Qnty SIG Indications Ordering Provider Sertraline HCL 08/08/ Active Tablets 100mg 45tabs take 1.5 F32.9 Demetrius 2018 tablet MD Stefan daily. Thiamine HCL 07/17/ Active Tablets 100mg 60tabs 1 by mouth Demetrius 2018 every day MD Stefan Folic Acid 07/17/ Active Tablets 1mg 90tabs 1 by mouth Demetrius 2018 every day MD Stefan Clonazepam 07/04/ Active Tablets 0.5mg 30tabs take one Doreen 2018 by mouth Senner, twice a DO day as needed for anxiety. do not take with alcohol. Omeprazole / Active Capsules 20mg 90caps take one Doreen 0000 DR by mouth Senner, daily DO Tramadol HCL / Active Tablets 50mg has not Unknown 0000 needed---1 tablets by mouth every 6 hours as needed pain Ondansetron / Active Tablets 4mg dissolve Unknown 0000 Dispers one tablet orally every 8 hours as needed for nausea. Ibuprofen / Active Tablets 200mg 1-2 tablet Unknown 0000 po as needed Sertraline HCL 07/17/ Hx Tablets 100mg 30tabs Take 1.5 F32.9 Demetrius 2017 - tablet MD Stefan 08/08/ daily. 2018 Sertraline HCL 07/03/ Hx Tablets 50mg 30tabs 1 tab Doreen 2018 - every day Senner, (do not DO 2018 start this until after you finish the tramadol) Potassium 08/17/ Hx Tablets ER 10Meq 180tab 2 po qd Shantanu Chloride ER 2011 - s . 07/01/ Ana Cristina, 2017 Sharmila Lipitor / Hx Tablets 20mg 90tabs 1 po hs Shantanu 0000 - hold as of . ..12 Boogie De La Paz M.D. Librium / Hx Capsules as 10caps Unknown [...] 1 capsule Unknown 0000 - yoshi;y 2017 Immunizations Description No Information Available Vital Signs Date Vital Result Comment 09/17/2018 12:31pm Height 73 inches 6'1" Weight 207.00 lb without shoes Heart Rate 84 /min BP Systolic 120 mmHg Rue reg cuff BP Diastolic 80 mmHg Rue reg cuff BP Systolic Sitting 122 mmHg Lue reg cuff BP Diastolic Sitting 84 mmHg Lue reg cuff BP Systolic Standing 120 mmHg Lue reg cuff BP Diastolic Standing 90 mmHg Lue reg cuff Respiratory Rate 16 /min BMI (Body Mass Index) 27.3 kg/m2 Ejection Fraction 55-60% date 08/13/2012 echo 08/08/2018 1:35pm Weight 200.00 lb Heart Rate 70 /min BP Systolic 130 mmHg Lue BP Diastolic 80 mmHg Lue BP Systolic Sitting 132 mmHg Rue BP Diastolic Sitting 80 mmHg Rue Respiratory Rate 16 /min Body Temperature 99.3 F Pain Level 0 O2 % BldC Oximetry 97 % 07/24/2018 1:48pm Weight 200.00 lb Heart Rate 62 /min BP Systolic 148 mmHg Lue BP Diastolic 98 mmHg Lue BP Systolic Sitting 152 mmHg Rue BP Diastolic Sitting 100 mmHg Rue Respiratory Rate 16 /min Body Temperature 99.5 F Pain Level 0 07/04/2018 1:12pm Weight 201.00 lb Heart Rate 74 /min BP Systolic 133 mmHg Lue average long BP Diastolic 93 mmHg Lue average long BP Systolic Sitting 135 mmHg Rue avarage long BP Diastolic Sitting 91 mmHg Rue avarage long Respiratory Rate 18 /min Body Temperature 96.5 F Pain Level 6 O2 % BldC Oximetry 100 % 07/02/2018 2:23pm Height 73 inches 6'1" Weight 209.00 lb Heart Rate 50 /min BP Systolic 138 mmHg average long, Lue BP Diastolic 92 mmHg average long, Lue Respiratory Rate 18 /min Body Temperature 98.3 F Pain Level 8 RLQ O2 % BldC Oximetry 98 % BMI (Body Mass Index) 27.6 kg/m2 08/17/2012 2:19pm Height 73 inches 6'1" Weight 205.00 lb Heart Rate 60 /min BP Systolic Sitting 116 mmHg BP Diastolic Sitting 82 mmHg Respiratory Rate 20 /min BMI (Body Mass Index) 27.0 kg/m2 Results Test Date Facility Test Result H/L Range Note Type & Screen 07/06/2018 [facility] Patient Blood A Positive [address] [place] [address] [phone] Antibody Screen NEGATIVE Urinalysis Profile 07/06/2018 [facility] Urine Color Yellow [address] [place] [address] [phone] Urine Appearance Cloudy Urine Specific Mead 1.029 N 1.010-1.030 Urine pH 5.0 N 5-9 Urine Urobilinogen Negative Negative Urine Ketones Trace Abnormal Negative Urine Protein Negative Negative Urine Leukocytes Negative Negative Urine Blood Negative Negative Urine Nitrite Negative Negative Urine Bilirubin Negative Negative Urine Glucose Negative Negative Basic Metabolic Panel 09/17/2012 [facility] Sodium 137 mmol/L 133-145 [address] [place] [address] [phone] Potassium 4.1 mmol/L 3.5-5.0 Chloride 102 mmol/L 101-111 Co2 Carbon Dioxide 27.0 mmol/L 22-32 Anion Gap 8.0 mmol/L 2-11 Glucose 95 mg/dL 70-100 Blood Urea Nitrogen 16 mg/dL 6-24 Creatinine 1.10 mg/dL 0.50-1.40 BUN/Creatinine Ratio 14.5 8-20 Calcium 9.6 mg/dL 8.1-9.9 Egfr Non- 76.6 >60 Egfr 98.5 >60 2 Laboratory test 09/17/2012 [facility] Magnesium 2.2 mg/dL 1.7 -2.6 finding [address] [place] [address] [phone] CBC Auto Diff 09/17/2012 [facility] White Blood 6.3 4.8-10.[address] Count 10^3/[place] [address] [phone] Red Blood Count 4.58 10^6/uL 4.0-5.4 Hemoglobin [...] Red Blood Cells % 0.1 Laboratory test 09/17/2012 [facility] Inr 0.81 Low 0.82-1.[address] [place] [address] [phone] Catecholamine 24HR 09/13/2012 [facility] Urine 24 h Urine Fract [address] [place] [address] Duration [phone] Urine Total Volume 2000 mL Urine Norepinephrine 60 mcg/24h 15-80 Urine Epinephrine 5.6 mcg/24h 0.0-20.0 Urine Dopamine 216 mcg/24h 65-400 4 Basic Metabolic Panel 08/22/2012 [facility] Sodium 143 mmol/L 133-[address] [place], [place] [id number] [phone] Potassium 4.3 mmol/L 3.5-5.0 Chloride 104 mmol/L 101-111 Co2 Carbon Dioxide 31.0 mmol/L 22-32 Anion Gap 8.0 mmol/L 2-11 Glucose 80 mg/dL 70-100 Blood Urea Nitrogen 17 mg/dL 6-24 Creatinine 1.10 mg/dL 0.50-1.40 BUN/Creatinine Ratio 15.5 8-20 Calcium 10.5 mg/dL High 8.1-9.9 Egfr Non- 76.6 >60 Egfr 98.5 >60 5 Laboratory test 08/22/2012 [facility] Magnesium 2.4 mg/dL 1.7 -2.6 [address] [place] [id number] [phone] 1 COUGHING UP BLOOD 2 Because ethnic data is not always readily [...] 15-29 5 Kidney failure <15 (or dialysis) 3 The INR(International Normalized Ratio) was adopted by [...] from prosthetic heart valves 2.5 - 3.5 4 Test Performed by: [address] [address] Manager Financial Planning: Calin Sr III, M.D. R 5 Because ethnic data is not always readily [...] 15-29 5 Kidney failure <15 (or dialysis) 6 CC: LESLIE HUNTLEY AND DR.ETHAN BACA PER ROBY @ 'S OFFICE Procedures Date Code Description Status 09/17/2018 38197 EKG Tracing & Interpretation Completed 12/04/2013 33493 Treadmill Interp/Report Only Completed 12/04/2013 24218 Stress Test Supervsn W/Out I/R Completed 12/04/2013 07455 Myocardial Perfusion Imaging Tomographic (Spect) Multiple Completed Studies 12/03/2013 74380 EKG, Interpretation Only Completed 08/20/2013 15900 Polysomnography Sleep Staging 4+ Parameters W/Cpap Completed 08/06/2013 73490 Polysomnography Sleep Staging 4+ Parameters W/Cpap Completed 08/22/2012 94435 Mobile Cardiovascular Telemetry Over 24 HR Up To 30 Days Completed 08/17/2012 69536 EKG Tracing & Interpretation Completed Encounters Type Date Location Provider Dx Diagnosis Office Visit 09/17/2018 [facility] Spive[facility] M.D. R00.2 Palpitations 1:00p [facility] G47.33 Obstructive sleep apnea (adult) (pediatric) F10.988 Alcohol use, unspecified with other alcohol-induced disorder Z72.0 Tobacco use R06.2 Wheezing R06.02 Shortness of breath Office Visit 08/08/2018 1:30p [facility] Demetrius Aviles F32.9 Major depressive [facility] MD disorder, single episode, unspecified F41.0 Panic disorder [episodic paroxysmal anxiety] F17.210 Nicotine dependence, cigarettes, uncomplicated I48.0 Paroxysmal atrial fibrillation F10.988 Alcohol use, unspecified with other alcohol-induced disorder Office Visit 07/24/2018 1:30p [facility] Doreen F32.9 Major depressive [facility] Senner, DO disorder, single episode, unspecified F41.0 Panic disorder [episodic paroxysmal anxiety] Office Visit 07/04/2018 1:00p [facility] Doreen Garza, R00.2 Palpitations [facility] DO F32.9 Major depressive disorder, single episode, unspecified R10.31 Right lower quadrant pain F41.0 Panic disorder [episodic paroxysmal anxiety] Office Visit 07/02/2018 2:00p [facility] Doreen R10.31 Right lower [facility] Senjessica, DO quadrant pain F32.9 Major depressive disorder, single episode, unspecified Office Visit 08/01/2013 3:39p Sleep Disorder Cam [place]. 786.09 Dyspnea & Center Sharmila Rowley Respiratory Abnormalities Other 780.79 Malaise And Fatigue Other 780.59 Sleep Disturbances Other Office Visit 08/17/2012 2:40p [facility] Shantanu Fried 785.0 Tachycardia Sharmila De La Paz Unspec 780.2 Syncope & Collapse Plan of Treatment Future Appointment(s):10/09/2018 2:00 pm - Ninfa Wilkins NP at [facility]09/25/2018 2:00 pm - Traveling ECHO 1 at [facility]11/22/2018 1:00 pm - Isael Munoz M.D.,FACP at [facility] - [address]09/17/2018 - [place] Spivey M.D.R00.2 PalpitationsFollow up:Have [employer] send Linq downloads to us.G47.33 Obstructive sleep apnea (adult) ( pediatric)Referral:Tiffanie Figueroa MD, Pulmonary HfesplmuZ05.988 Alcohol use, unspecified with other alcohol-induced disorderComments:I recommend cutting down to 7 beers/week (one/day).Z72.0 Tobacco useComments:I strongly recommend completely stopping cigarettes.R06.2 XwokshssQ16.02 Shortness of breathNew Orders:Echocardiogram, Scheduled: 09/25/18ollow up:after testing
[2018-10-01 10:32] LABS: ABS Basophils 0.1 10^3/ul (0-0.2); ABS Eosinophils 0 10^3/ul (0-0.6); ABS Monocytes 0.5 10^3/ul (0-0.8); ABS Neutrophils 6.3 10^3/ul (1.5-7.7); ABS Nucleated RBC 0 10^3/ul; Eosinophil % 0.5 %; Hematocrit 44 % (42-52); Hemoglobin 15.4 g/dl (14.0-18.0); Lymphocyte % 22.2 %; Mean Corpuscular HGB Conc 35 g/dl (31-36); Mean Corpuscular Hemoglobin 31 pg (27-31); Mean Corpuscular Volume 91 fL (80-94); Mean Platelet Volume 7.5 fL (7.4-10.4); Nucleated Red Blood Cells % 0.1; Platelet Count 270 10^3/ul (150-450); Red Blood Count 4.89 10^6/ul (4.00-5.40); Red Cell Distribution Width 13 % (10.5-15); White Blood Count 8.9 10^3/ul (3.5-10.8)
[2018-10-01 10:53] LABS: INR 0.91 (0.77-1.02)
[2018-10-01 11:00] LABS: EGFR Non-African American 61.7 (>60)
[2018-10-01] MEDS ORDERED: LORazepam TAB(*) 1 MG PO ONE (11:10)
[2018-10-01 12:06] VITALS: BP 137/88
== END 2018-10-01 12:05 | disposition home or self-care (01) ==
LOC: ED 09:48
DX: R06.00 Dyspnea, unspecified (principal); F41.9 Anxiety disorder, unspecified; I48.91 Unspecified atrial fibrillation; I47.1 Supraventricular tachycardia; J45.909 Unspecified asthma, uncomplicated; Z87.891 Personal history of nicotine dependence; K21.9 Gastro-esophageal reflux disease without esophagitis; E78.5 Hyperlipidemia, unspecified; I10 Essential (primary) hypertension; E78.00 Pure hypercholesterolemia, unspecified
CPT/HCPCS: 36415; 71046; 80053; 82550; 82553; 83605; 83880; 84484; 85025; 85379; 85610; 85730; 86140; 93005; 96361; 99283; A9270-GY